=== PATIENT | female | born 1985 | race Caucasian/White ===

== ENCOUNTER 2021-05-31 10:03 | Emergency (ER) | payer SELFPAY ==
[~2021-05-31] VITALS: Ht 162.6 cm; Wt 128.2 kg
[~2021-05-31 10:03] MED LIST: BACTRIM DS1 TAB OR; LORTAB5 OR
[2021-05-31] MEDS ORDERED: METFORMIN500 M2 PO (11:05)
[2021-05-31] MEDS ORDERED: LISINOPRIL10 MG PO (11:05)
[2021-05-31 12:23] VITALS: BP 116/81
== END 2021-05-31 12:23 | disposition home or self-care (01) | DRG 395 ==
LOC: ED 10:03
DX: K52.1 Toxic gastroenteritis and colitis (principal); T38.3X5A Adverse effect of insulin and oral hypoglycemic [antidiabetic] drugs, initial encounter; E66.01 Morbid (severe) obesity due to excess calories; E11.9 Type 2 diabetes mellitus without complications; F17.200 Nicotine dependence, unspecified, uncomplicated; Z79.84 Long term (current) use of oral hypoglycemic drugs; Z20.822 Contact with and (suspected) exposure to COVID-19

== ENCOUNTER 2023-10-31 08:49 | Emergency (ER) | payer SELFPAY ==
[~2023-10-31] VITALS: Ht 162.6 cm; Wt 117.9 kg
[~2023-10-31 08:49] MED LIST changes: +LISINOPRIL10 MG PO; +METFORMIN500 M2 PO
[2023-10-31 09:02] VITALS: BP 137/99
[2023-10-31 09:32] LABS: BASO% 0.4 % (0-3); EOS% 0.6 % (0-8); IMMATURE GRANULOCYTES 0.4 % (0.0-5.0); LYMPH% 28.1 % (15-41); MEAN CELL VOLUME 78.6 fL CALC (80.0-100.0); MEAN CORPUSCULAR HGB CONC 31.9 g/dL CAL (32.0-36.0); MONO% 10.3 % (2-13); NEUT# 3.17 thou/uL (2.00-7.15); NEUT% 60.2 % (42-76); RED BLOOD COUNT 6.03 mill/uL (4.20-5.60); RED CELL DISTRI WIDTH 13.4 % (11.5-15.5)
[2023-10-31 09:33] VITALS: BP 125/77
[2023-10-31 09:41] LABS: HEMATOCRIT 47.4 % (37.0-47.0); HEMOGLOBIN 15.1 g/dl (12.0-16.0)
[2023-10-31 09:51] LABS: ALBUMIN 4.4 g/dL (3.2-5.0); ALKALINE PHOSPHATASE 96 u/l (38-126); ANION GAP 12 (6-22 (CALC)); BILIRUBIN, TOTAL 0.4 mg/dL (0.02-1.3); BUN 20 mg/dL (7-17); BUN/CREATININE RATIO 27 (12-20 (CALC)); CARBON DIOXIDE 26 mmol/l (22-30); CHLORIDE 104 mmol/l (95-108); CREATININE 0.7 mg/dL (0.5-1.0); GFR FOR AFR.AMER. > 60 ML/MIN (>=60 (CALC)); GFR OTHER RACES > 60 ML/MIN (>=60 (CALC)); POTASSIUM 3.9 mmol/l (3.5-5.1); SGOT/AST 51 u/l (14-36); SODIUM 138 mmol/l (137-146); TOTAL PROTEIN 7.7 g/dL (6.3-8.2)
[2023-10-31 10:00] VITALS: BP 140/82
[2023-10-31] MEDS ORDERED: PAXLOVID PO (10:23)
[2023-10-31] MEDS ORDERED: ZOFRAN4 MG/TAB PO (10:23)
[2023-10-31 11:01] VITALS: BP 129/81
[2023-10-31 11:03] VITALS: BP 129/81
== END 2023-10-31 11:05 | disposition home or self-care (01) | DRG 179 ==
LOC: ED 08:49
PROVIDERS: Family Medicine
DX: U07.1 COVID-19 (principal); J02.9 Acute pharyngitis, unspecified; R50.9 Fever, unspecified; R42 Dizziness and giddiness; R53.83 Other fatigue; R09.81 Nasal congestion; R05.9 Cough, unspecified; E11.9 Type 2 diabetes mellitus without complications; F17.200 Nicotine dependence, unspecified, uncomplicated; Z79.84 Long term (current) use of oral hypoglycemic drugs